=== PATIENT | female | born 1970 | race Caucasian/White ===

== ENCOUNTER → 2019-03-15 07:08 | Outpatient (CLI) | payer OTHER, SELFPAY ==
--- NOTE | 2019-03-15 07:16 | MRI_ITS ---
STUDY: MRI LUMBAR SPINE WITH AND WITHOUT CONTRAST REASON FOR EXAM: Female, 48 years old. Low back pain, leg pain, prior surgery TECHNIQUE: Standardized fat and water weighted pulse sequences were obtained in the sagittal and axial planes. 17 IV Dotarem was administered for the contrast portion of the examination. COMPARISON: 05/02/2018 FINDINGS: T12-L1: No change in the small left paracentral disc protrusion which produces mild spinal stenosis but no neural foraminal stenosis. Normal lumbar lordosis. There is no substantial scoliosis. Normal conus medullaris that terminates at the L1/L2. L1-2: Normal endplates. Normal disc height, hydration and morphology. Normal bilateral facet joints. Normal central canal and bilateral lateral recesses. Normal bilateral intervertebral neural foramina. L2-3: Normal endplates. Normal disc height, hydration and morphology. Normal bilateral facet joints. Normal central canal and bilateral lateral recesses. Normal bilateral intervertebral neural foramina. L3-4: Normal endplates. Normal disc height, hydration and morphology. Normal bilateral facet joints. Normal central canal and bilateral lateral recesses. Normal bilateral intervertebral neural foramina. L4-5: Normal endplates. Normal disc height, hydration and morphology. Normal bilateral facet joints. Normal central canal and bilateral lateral recesses. Normal bilateral intervertebral neural foramina. L5-S1: Status post posterior decompression and transpedicular fixation with anatomic alignment with no spinal stenosis or neural foraminal stenosis. Normal visualized sacral ala. Normal visualized paraspinous soft tissue structures. There is no demonstrated abnormal enhancement. MRI/Spine Lumbar W/WO Contrast IMPRESSION: Postsurgical changes with no significant spinal stenosis or neural foraminal stenosis. Electronically Signed: Robert Chan MD at 8:44 EDT Tel , Service support ,
== END ==
PROVIDERS: Family Provider Family Medicine; PCP Family Medicine; Referring Provider Orthopaedic Surgery Orthopaedic Surgery of the Spine; Visit Provider Orthopaedic Surgery Orthopaedic Surgery of the Spine
DX: M51.36 Other intervertebral disc degeneration, lumbar region (principal); Z98.1 Arthrodesis status
CPT/HCPCS: 72158; A9575

== ENCOUNTER 2025-07-05 15:00 | Outpatient (RCR) | payer OTHER, SELFPAY ==
--- NOTE | 2025-03-16 16:59 | HP.PTEVAL ---
Patient's Visit Information Visit Information Visit Information: MAKENZIE CANDELARIO is a 54 year old F referred to Physical Therapy by SHAYNA LAN with a diagnosis of Pelvic pain. Date of Evaluation: 03/16/25 Physical Therapist: Mildred Acevedo Visit Plan Frequency: 1x/Week Duration: 3 Months Plan: Makenzie would benefit from skilled PT intervention to address her incontinence, pelvic pain and low back pain postoperatively after her hysterectomy, rectocele and cystocele repair. She has pelvic floor tightness and weakness which we will address with manual therapy and strengthening. She also has some lumbar dysfunction which we will also address in hopes to improve her chronic pelvic pain as well. Next visit continue pelvic floor manual therapy (bilaterally but worse on left side and superiorly bilaterally at urethral sphincters). Started her on deep breathing today for pelvic floor relaxation. Start strengthening once tightness more resolved. She will need belly work (tender throughout abdomen) and work on lumbar spine (worse on left side today). Subjective Subjective: She had hysterectomy (kept cervix and ovaries) , rectocele and bladder sling done December 29, 2024. IC since she was 16 years old. She has always dealt with bowel and bladder problems, pain during intercourse. Surgery was done by Dr. Shayna Lan. She treats IC with herbs herself. She has more bladder leakage now than before the surgery. Before surgery, she had stress incontinence. Now she has to run to the bathroom or she will lose control of her bladder in the middle of the night when she starts walking to the bathroom. Bathroom is being remodeled and she has to run across the house to get there. Typically she gets up 3 x night. If she senses she needs to go, she needs to get there within 5-10 minutes. She wears a light day pad consistently. Leakage of a dime size amount during the day that she isn't aware of. She has always had stress incontinence. She notices some leakage when she gets in the shower (she didn't have that before). Getting out of the car , standing up, bending down, pushing on her belly she leaks but worse now. Used to happen when her bladder was flared up. Pelvic pain. Never goes away and has been this way her whole life. She has spasms in her bladder. Bowels get flared up. If she sits down , she feels like she is getting stabbed in the rectum. She did DMSO installations for years. Pelvic pain 1-2/10 and 7-910 when it flares up. Both sides of belly. L5-S1 fusion 2014. T8-T9. She has chronic pain. She takes Tramadol for her pain. 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 Severe constipation. Severe constipation due to a med she was on for fibromyalgia. She had her only son when she was 16 years old. Episiotomy. She has never had regular bowel movements. She was splinting before surgery. She isn't having to splint for bowel movements since surgery which is an improvement. She found out week before surgery she is Type 2 Diabetic so she is working to manage that. Pain pelvic pain: Pain Intensity (Out of 10): 2 Objective Objective: Mild, moderate pelvic floor tightness bilaterally but worse on left layer 2-3, tender and tight bilateral superior urethral sphincters, LAYCOCK 3/3/5/3, DIFFICULTY RELAXING BETWEEN CONTRACTIONS, NO EVIDENCE OF PROLAPSE GOOD ANAL WINK WITH CONTRACTION, LEFT UPSLIP, LEFT ROTATION T10-L4, moderate bilateral lumbar, piriformis tightness (previous L5-S1 fusion), Tender throughout belly with palpation POPDI-6 24, ISIDRA-6 21 Goals Goal 1:: Gosia will be able to go thru day to day activities without spontaneous leaking or the need for a pad. Goal Time Frame: 8-12 Weeks Goal 2:: Gosia will be able to delay using the restroom by 5 minutes in case of urgency to avoid any incontinence episodes. Goal Time Frame: 6-8 Weeks Goal 3:: Gosia will be able to cough or sneeze without leaking. Goal Time Frame: 8-12 Weeks Goal 4:: Gosia will be able to tolerate vaginal penetration without pain during or after. Goal Time Frame: 8-12 Weeks Goal 5:: Gosia's low back pain will be 50% less during day to day activities. Goal Time Frame: 8-12 Weeks Goal 6:: Gosia will experience no leakage with positional changes such as sit to stand, bending, etc. Goal Time Frame: 6-8 Weeks Rehabilitation Potential Physical Therapy Diagnosis: Mixed incontinence , pelvic and perineal pain, low back pain, unspecified Rehabilitation Potential: Good Anticipated Interventions Patient/Client Instruction: Educate patient on: Condition and Plan of Care For the Purpose of:: To improve muscle performance and motor function, To improve health and function, To improve self management and To improve tolerance to ADL's Therapeutic Exercise to Include: Strength training, Neuromotor development, Relaxation training and Abby Exercises For the Purpose of:: To decrease pain, To improve muscle performance and motor function, To decrease soft tissue restriction and To improve self management Manual Therapy Techniques to Include: Trigger point massage and Soft tissue mobilization For the Purpose of:: To decrease pain, To improve muscle performance and motor function and To improve self management Ultrasound (thermal/non thermal): Yes For the Purpose of:: To decrease pain, To improve muscle performance and motor function and To improve health and function Text: Thank you for the opportunity to evaluate your patient. For Medicare and Medicare HMO plans, please review the plan of care and approve it. It will need to be FAXED BACK to us at [phone] for Medicare purposes. For Medicare only, by signing this I certify the plan of care. Please let me know if there are questions or concerns regarding this plan of care. Physician Signature: Date:
--- NOTE | 2025-07-05 16:59 | HP.PTDCSUM ---
Discharge Summary D/C summary: It has been my pleasure to treat SANFORD CANDELARIO referred by SHAYNA LAN, with the diagnosis of Pelvic pain for a total of 9 visit(s). Discharge Date: Please see the following information for a summary of their discharge status. Subjective Subjective: Pelvic floor symptoms improved 80% since starting PT. She has not attempted intercourse per her doctor's orders as she had some bleeding when she attempted last. Bladder irritated this week and happens when she eats things she shouldn't eat (grapes). Overall she feels 80% improved since doing pelvic floor therapy. She is pleased with her results and ready for discharge. She plans to continue the exercises on her own at home. Her right hip is bothering her. No real change in her low back pain. She had a stool at work she was sitting on that wasn't ergonomically correct and she knows that contributes . Hip pain averaging 2-3/10. Constant ache. Pelvic floor symptoms improved. Pain pelvic pain: Pain Intensity (Out of 10): 3 Overall Improvement % Improvement: 80 Objective Objective/Function: Overall she feels 80% improved since starting PT. She has met her max rehab potential and is ready for discharge. She plans to continue the exercises on her own. Goals Goal 1:: Gosia will be able to go thru day to day activities without spontaneous leaking or the need for a pad. 07/05/25 She still wears a pad but the leaking is less. She doesn't have the sudden leakage with an urge anymore which is a big improvement. Leakage when she first gets up in the morning. 50-60% improved. She is not finding as much urine in the pad. Goal Progress: Progressing Goal 2:: Gosia will be able to delay using the restroom by 5 minutes in case of urgency to avoid any incontinence episodes. 07/05/25 80% improved. Goal Progress: Progressing Goal 3:: Gosia will be able to cough or sneeze without leaking. 07/05/25 60-70% improved. Goal Progress: Progressing Goal 4:: Gosia will be able to tolerate vaginal penetration without pain during or after. 07/05/25 Uncertain as she was ordered by her doctor to discontinue intercourse. Goal Progress: Not Progressing Goal 5:: Gosia's low back pain will be 50% less during day to day activities. 07/05/25 No change in the back pain. Goal Progress: Not Progressing Goal 6:: Gosia will experience no leakage with positional changes such as sit to stand, bending, etc. 07/05/25 Improved. 70-80% improved. She can pivot out of the car and not leak. Goal Progress: Progressing Plan Plan: D/C from PT as she has met her max rehab potential and reports 80% improvement overall. Her discharge Pelvic floor disability index score is low at 55 . D/C Information d/c sentence: If there are questions or concerns regarding this patient's physical therapy, please feel free to call me at [phone]. Thank you for the referral of this patient. Sincerely, Mildred Acevedo Balance/Gait/Functional tests Improvement % Improvement: 80
== END 2025-07-05 19:00 | disposition home or self-care (01) ==
LOC: PT 15:00
PROVIDERS: PCP Family Medicine
DX: R10.2 Pelvic and perineal pain (principal)
CPT/HCPCS: 97110; 97112; 97140; 97162; 97530